=== PATIENT | female | born 1940 | race Caucasian/White ===

== ENCOUNTER → 2017-09-06 13:22 | Outpatient (CLI) | payer MEDICARE, OTHER ==
[~2017-09-06 13:22] MED LIST: ASCORBIC ACID500 MG PO; ATIVAN1 MG PO; ATROVENT HFA12.9 GM INH; BAYER CHEWABLE81 MG PO; BIOTIN5 MG PO; CALCIUM 600 +1 EAC3 PO; CO Q-10100 MG; COREG25 MG PO; COZAAR100 MG PO; CYCLOBENZAPRINE5 MG PO; GALZIN50 MG PO; HYDROCODONE-APA1 TAB PO; ILOTYCIN1 GM EACH EYE; KLOR-CON M2020 MEQ; LACTASE3000 UNIT PO; LIPITOR10 MG PO; LOMOTIL TABLET1 TAB PO; MAGNESIUM OXID500 MG PO; NEURONTIN 300300 MG; NIASPAN500 MG PO; NORVASC5 MG PO; OMEPRAZOLE20 M1 PO; PHENERGAN25 M1; PLAVIX75 MG PO; REQUIP0.25 MG PO; SENNA LAXATIVE8.6 MG; SPIRIVA18 MCG INH; VITAMIN B COMPL1 TAB PO; ZANTAC300 MG PO; ZOVIRAX400 MG PO
[2017-10-02 09:00] VITALS: BMI 24.5
== END | disposition home or self-care (01) ==
LOC: D.CT 13:22
DX: R93.1 Abnormal findings on diagnostic imaging of heart and coronary circulation (principal)

== ENCOUNTER 2017-09-28 07:30 | Inpatient (IN) | payer MEDICARE, OTHER ==
[2017-09-27 12:46] LABS: HEMATOCRIT 35.5 % (36.0-48.0); HEMOGLOBIN 11.4 g/dL (12-16); MCH 31.4 pg (26.0-34.0); MCHC 32.1 g/dL (31.0-37.0); MCV 97.8 fL (80.0-100.0); MEAN PLATELET VOLUME 10.2 fL (7.4-10.4); RBC 3.63 10x6/uL (4.00-5.40); RDW 13.9 % (11.5-14.5); WBC 8.1 10x3/uL (4.8-10.8)
[2017-09-27 12:58] LABS: PROTIME 12.8 SECONDS (11.6-15.0)
[2017-09-27 12:59] LABS: APTT 29.6 SECONDS (22.8-39.4)
[2017-09-27 13:00] LABS: APPEARANCE HAZY (CLEAR); COLOR STRAW (YELLOW); NITRITE POSITIVE (NEGATIVE)
[2017-09-27 13:01] LABS: BILIRUBIN NEGATIVE (NEGATIVE); GLUCOSE NEGATIVE (NEGATIVE); KETONE NEGATIVE (NEGATIVE); PROTEIN NEGATIVE (NEGATIVE); UROBILINOGEN NORMAL (NORMAL)
[2017-09-27 13:02] LABS: BACTERIA MANY /hpf (NONE SEEN); EPITHELIAL CELLS 0-5 /hpf (0-5); RED CELLS - URINE RARE /hpf (0-5)
[2017-09-27 13:14] LABS: ALBUMIN 3.7 g/dL (3.4-5.0); ANION GAP 12.8 mmol/L (8-16); BILIRUBIN - TOTAL 0.3 mg/dL (0.2-1.3); CALCIUM 9.3 mg/dL (8.5-10.1); CARBON DIOXIDE 27.4 mmol/L (21.0-32.0); CREATININE - SERUM 0.8 mg/dL (0.6-1.3); POTASSIUM - SERUM 4.2 mmol/L (3.5-5.1); PROTEIN - SERUM 6.9 g/dL (6.4-8.2)
[~2017-09-28] VITALS: Ht 157.5 cm; Wt 57.1 kg
--- NOTE | ~2017-09-28 | HP ---
PATIENT: ELEANOR DELGADO MEDICAL RECORD: [id number] ACCOUNT: [id number] LOCATION:[facility].CV02 : 38 ADMISSION DATE: 10/01/17 HISTORY AND PHYSICAL EXAMINATION ELEANOR Estrella (77yo, F) ID# [id number]. Date/Time09/19/2017 01:06ORLQZ1938Service Dept.NPP_[facility] ClinicProviderEDRENITA MIRELES MDInsuranceMed Primary: [place]) Insurance # : [id number] Referring Provider Name : RAMA YODER Employer Name : UNKNOWN Med Secondary: [facility] (MEDICARE SUPPLEMENT) Insurance # : [id number] Policy/Group # : [id number] Referring Provider Name : RAMA YODER Employer Name : UNKNOWN Prescription: DSTPSDIR - Member is eligible. Chief Complaint Carotid stenosis R CAROTID STENOSIS Patient's Care Team Referring Provider (): RAMA YODER: [address] [place] [id number], , Director Of Quality: AZIZA MICHELLE MD Patient's Pharmacies [facility] (ERX): [address] [facility] [id number], , Vitals BP:108/69 sitting L arm 09/19/2017 01:02 pmHR:86/REG 09/19/2017 01:03 pmHt:5 ft 2 in 09/19/2017 01:03 pmWt:125 lbs 09/19/2017 01:03 pmBMI:22.9 09/19/2017 01:03 pmAllergies Reviewed Allergies PERCOCETMedications Reviewed Medications acyclovir 400 mg /22/18 filledArg[facility] SystemsamLODIPine 5MG QHS09/19/17 enteredErika WatkinsamLODIPine 5 mg oltqlw15/19/18 filledArgInvision Heart Health Systemsascorbic acid (bulk)09/19/17 enteredErika WatkinsAspir-81 81 mg DAILY09/19/17 enteredErika WatkinsAtivan 1 mg tablet Take 1 tablet(s) as needed by oral route at bedtime.09/19/17 enteredGin Felizkinsatorvastatin 20 mg fzejdu41/29/18 filledPage HospitalWeavedAtrovent HFA 17 mcg/actuation aerosol inhaler Inhale 2 puff(s) every day by inhalation route.09/19/17 enteredGin Hallcarvedilol 25 mg tablet BID07/23/17 filledPage HospitalWeavedcyclobenzaprine 10 mg tablet DAILY09/14/17 [facility] HospitalWeaveddiclofenac sodium 75 mg tablet,delayed tlikuuy53/13/17 filledPage HospitalWeavedfluticasone 50 mcg/actuation nasal spray,cechycfiih63/28/18 [facility] toledoViViFigabapentin 300 mg capsule TID07/19/17 [facility] HospitalWeavedhydroCHLOROthiazide 12.5 mg bkdqolr64/18/17 [facility] HospitalWeavedhydroCHLOROthiazide 25 mg rojsdv21/25/17 [facility] HospitalWeavedHYDROcodone 10 mg-acetaminophen 325 mg /13/18 [facility] HospitalWeavedKlor-Con M20 mEq tablet,extended release DAILY08/01/17 [facility] HospitalWeavedLomotil 2.5 mg-0.025 mg tablet Take 1 tablet(s) every day by oral route.09/19/17 enteredGin Halllosartan 100 mg gbzujw53/01/17 [facility] HospitalWeavednitrofurantoin monohydrate/macrocrystals 100 mg wsufrav73/01/17 [facility] [place] HISTORY AND PHYSICAL [id number] ELEANOR DELGADOnitroglycerin 0.4 mg sublingual /09/18 [facility] HospitalWeavednystatin 100,000 unit/mL oral zgoulpyckj79/13/18 [facility] HospitalWeavedomeprazole 20 mg capsule,delayed ejnigda63/10/18 [facility] HospitalWeavedomeprazole 20 mg tablet,delayed release Take 20 mg every day by oral route.09/19/17 enteredGin HallPlavix 75 mg tablet Take 1 tablet(s) every day by oral route.09/19/17 enteredGin HallrOPINIRole 0.5 mg tablet EVERY NIGHT08/17/17 filledPage HospitalWeavedSpiriva with HandiHaler 18 mcg and inhalation capsules Inhale 1 capsule(s) every day by inhalation route.09/19/17 Raudel Stauffer Reviewed Problems Carotid artery stenosis - Onset: 09/11/2017, Bilateral Family History Reviewed Family History Mother- Coronary arteriosclerosisSocial History Reviewed Social History Cardiology Family history of heart disease?: Y Smoking Status: Former smoker High blood pressure: Y Surgical History Reviewed Surgical History pPM 2010, stent 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 HPI severe right internal carotid artery stenosis ROS Patient reports exercise intolerance (half block claudication) but reports no fever, no night sweats, no significant weight gain, and no significant weight loss. She reports vision change (left eye laterally) but reports no dry eyes and no irritation. She reports palpitations but reports no chest pain, no arm pain on exertion, no shortness of breath when walking, no shortness of breath when lying down, and no known heart murmur; pacemaker. She reports dizziness and restless legs but reports no loss of consciousness, no weakness, no numbness, no seizures, and no headaches. She reports no difficulty hearing and no ear pain. She reports no frequent nosebl eeds and no nose/sinus problems. She reports no sore throat, no bleeding gums, no snoring, no dry mouth, no mouth ulcers, no oral abnormalities, and no teeth problems. She reports no jugular vein distension and no swollen glands. She reports no cough, no w heezing, no shortness of breath, and no coughing up blood. She reports no abdominal pain, no vomiting, normal appetite, no diarrhea, not vomiting blood, no nausea, and no constipation. She reports no incontinence, no HISTORY AND PHYSICAL [id number] ELEANOR DELGADO difficulty urinating, no hematuria, an d no increased frequency. She reports no muscle aches, no muscle weakness, no arthralgias/joint pain, no back pain, and no swelling in the extremities. She reports no abnormal mole, no jaundice, and no rashes. She reports no depression, no sleep disturbanc es, feeling safe in relationship, and no alcohol abuse. She reports no fatigue. She reports no swollen glands and no bruising. She reports no runny nose, no sinus pressure, no itching, no hives, and no frequent sneezing. ROS as noted in the HPI Physical Exam Patient is a 77-year-old female. Constitutional: General Appearance well nourished and developed and healthy-appearing. Level of Distress NAD. Ambulation ambulating normally. Cardiovascular: Apical Impulse not displaced or no thrill. Heart Auscultation normal s1 and s2; no murmurs, rubs, or gallops; and RRR; PACs. Neck Vessels right carotid bruit. Arterial Pulses no abdominal aorta bruits, femoral bruits, or popliteal bruits; popliteal not palpable (right) and dorsalis pedis not palpable (right); and 2+ bilateral, carotid 2+ bilateral, and femoral 2+ bilateral; palpable left dorsalis pedis pulse 2+. Edema no edema or varicosities. Lungs: Repiratory Effort no dyspnea. Percussion no hyperresonance or dullness or flatness. Auscultation no wheezing, r honchi, or rales / crackles and breathing sounds normal, good air movement, and CTA except as noted. Abdomen: Bowl Sounds normal. Inspection and Palpation no tenderness, guarding, masses, or rebound tenderness and soft and non-distended. Liver non-tender and no hepatomegaly. Spleen non-tender and no splenomegaly. Hernia none palpable. Musculoskeletal System: Gait And Stance normal gait and stance. Digits and Nails normal nails and no cyanosis. Neurologic: Cranial Nerves grossly intact. Reflexes DTRs 2+ bilaterally throughout. Sensation grossly intact. Lymph Nodes: Lymph Nodes no cervical LAD, supraclavicular LAD, axillary LAD, or inguinal LAD. Eyes: Lids and Conjunctivae no discharge or pallor and non-injected; lateral gaze impaired OS. Pupils PERRLA. Cornea grossly intact. EOM EOMI. Lens clear. Sclera non-icteric. Neck: Neck no masses or enlarged lymph nodes and supple, trachea midline, and carotid bruits (right). Thyroid no enlargement or nodules and non-tender. Skin: Inspection and Palpation no rash, lesions, ulcers, jaundice, or abnormal nevi. Assessment / Plan severe right internal carotid artery stenosis Intracranial stenting of basal artery Left carotid stent patent 1. Carotid artery stenosis I65.29: Occlusion and stenosis of unspecified carotid artery Discussion Notes HISTORY AND PHYSICAL [id number] ELEANOR DELGADO I have discussed the patient's disease process with her and her daughter in detail as well as the alternative methods of treatment. We discussed right carotid endarterectomy and the expected benefit s and risk which include bleeding, infection, stroke, , and the imponderables. They understand all of the above and wishes to proceed with planned surgery SHIKHA MIRELES MD at 1318 CC: [id number] DICTATION DATE: 09/19/17 1300 ELECTRIC MOTOR ASSEMBLER: KYLE 09/27/17 0849 DIS IN 10/03/17 [facility] [address] [place] [address]
--- NOTE | ~2017-09-28 | OP ---
PATIENT NAME: ELEANOR DELGADO MEDICAL RECORD: [id number] :38 [facility] ADMISSION DATE:10/01/17 SURGEON: LUKE MIRELES MD DATE OF OPERATION: 10/01/2017 SURGEON: Luke Mireles MD ANESTHESIA: General endotracheal, Dr. Iglesias. OPERATION PERFORMED: Right carotid endarterectomy. PREOPERATIVE DIAGNOSIS: Severe right internal carotid artery stenosis. POSTOPERATIVE DIAGNOSIS: Severe right internal carotid artery stenosis. INDICATION FOR OPERATION: Severe right internal carotid artery stenosis. FINDINGS AT OPERATION: Severe greater than 90% right internal carotid artery stenosis. There were no EEG changes with clamping or unclamping of the carotid artery. ESTIMATED BLOOD LOSS: Less than 100 cc. DESCRIPTION OF PROCEDURE: After informed consent, adequate preoperative medication evaluation, the patient was brought to the operating room, placed on the table in the supine position. After induction of general endotracheal anesthesia and application of appropriate monitoring devices, the right neck was prepped and draped in sterile field, utilizing Betadine scrub, alcohol, and Betadine solution. Betadine-impregnated drape was also used. An oblique incision was made in the skin crease. Dissection carried down the fascia. Hemostasis maintained with electrocautery. Facial vein was identified and divided. Utilizing sharp dissection, the common carotid, internal and external carotid arteries were dissected free of surrounding structures, protecting the neurological structures. The patient was given a calculated dose of heparin, after 3 minutes, clamps were applied. After 2 minutes, no EEG change. The arteriotomy was made and extended with Barbour scissors. Artery underwent endarterectomy sharply. Artery underwent extensive debridement and irrigation. Utilizing a CorMatrix vascular patch, a running 7-0 Prolene suture, the arteriotomy was closed with a patch angioplasty technique. All maneuvers to remove trapped air were performed. The clamps removed sequentially. There were no EEG changes. The patient was given a calculated dose of protamine to reverse the heparin. Hemostasis was achieved. A #7 Bridger-Gay drain was left in the depths of wound and brought out through the base of the neck. Neck was again irrigated. Instrument count and sponge count were correct times 2. Neck was closed in layers utilizing 3-0 Vicryl on platysma, 5-0 subcuticular Monocryl on the skin. Sterile dressings were applied. The patient tolerated the procedure well and transferred to cardiovascular recovery in stable condition. TRANSINT:[id number] Voice Confirmation ID: [id number] DOCUMENT ID: [id number] OPERATIVE REPORT [id number] ELEANOR DELGADO EDWARD MD at 1318 CC: [id number] DICTATION DATE: 10/01/17 1014 TRANSVERSE ABDOMINAL MUSCLE NURSE: 10/01/17 1117 DIS IN 10/03/17 [place] [id number] [place] [id number]
[2017-10-01] VITALS (54 sets, daily range): BP systolic 97–143; BP diastolic 30–60; BMI 22.9
[2017-10-02] VITALS (50 sets, daily range): BP systolic 90–158; BP diastolic 31–74; Ht 157.5 cm; Wt 57.1 kg
[2017-10-03] VITALS (12 sets, daily range): BP systolic 96–141; BP diastolic 38–64
== END 2017-10-03 13:05 | disposition home or self-care (01) | DRG 39 ==
LOC: D.SDCHOLD 07:30 → D.CVICU 10-01 05:00 → D.SDCHOLD 10-01 07:30 → D.CVICU 10-01 09:20
PROVIDERS: Internal Medicine Cardiovascular Disease
PROC: 03UK0JZ Supplement Right Internal Carotid Artery with Synthetic Substitute, Open Approach (ICD-10-PCS; 2017-10-01)
PROC: 03CK0ZZ Extirpation of Matter from Right Internal Carotid Artery, Open Approach (ICD-10-PCS; principal; 2017-10-01 07:30)
DX: I65.23 Occlusion and stenosis of bilateral carotid arteries (principal); I10 Essential (primary) hypertension; E78.5 Hyperlipidemia, unspecified; G62.9 Polyneuropathy, unspecified; Z95.0 Presence of cardiac pacemaker

== ENCOUNTER 2018-08-13 10:46 | Outpatient (CLI) | payer MEDICARE, OTHER ==
[~2018-08-13] VITALS: Ht 157.5 cm; Wt 59.1 kg
--- NOTE | ~2018-08-13 | HEMODYNAMI ---
PATIENT:ELEANOR DELGADO [place] MEDICAL RECORD: [id number] : 36 LOCATION:[facility] ADMISSION DATE: 08/13/18 Generatedon:08/13/201813:31 Patient name: ELEANOR DELGADO Patient #: [id number] SSN: : 1940 Date of study: 08/13/2018 Page: Of Hemodynamic Procedure Report Patient Data Patient Demographics Procedure consent was obtained First Name: ELEANOR Gender: Female Last Name: DANNY : 1940 [facility] Initial: [place] Age: 78 year(s) Patient #: [id number] Race: Unknown Additional ID: [id number] Contact details Address: [place] [address] State: [place] City: [place] Zip code: [address] Past Medical History Allergies Allergen Reaction Date Comments Reported Percocet 08/13/2018 Admission Admission Data Admission Date: 08/13/2018 Admission Time: 10:46 Procedure Procedure Types Cath Procedure Diagnostic Procedure LHC LHC w/Coronaries Sedation Charges Moderate Sedation up to 15 minutes PCI Procedure Coronary Stent Coronary Stent Initial Peripheral Cath Diagnostic Procedure Battery Tester And Repairer Peripheral Procedures Epocz-Fmctobm-Mnx-Off Procedure Description Procedure Date Procedure Date: 08/13/2018 Procedure Start Time: 13:00 Procedure End Time: 13:30 Procedure Staff Name Function Matheus Harris MD Performing Physician Ruben Crouch RT Manager Configuration Fransisca Johns RT Monitor Je Canas RN Nurse Melodie Griggs RT Scrub Procedure Data Cath Procedure Fluoroscopy Diagnostic fluoroscopy Total fluoroscopy Time: 4.4 time: 4.4 min min Diagnostic fluoroscopy Total fluoroscopy dose: 688 dose: 688 mGy mGy Contrast Material Contrast Material Type Amount (ml) Isovue 300 183 Entry Location Entry Primary Successful Side Size Upsize Upsize Entry Closure Succes sful Closure Location (Fr) 1 (Fr) 2 (Fr) Remarks Device Remarks Femoral Right 5 Fr 6 Fr Exoseal artery Short Estimated blood loss: 10 ml Diagnostic catheters Device Type Used For End Catheter Placement MULTIPACK JL 4.0 5Fr Left Coronary catheter Angiography MULTIPACK 3DRC 5Fr Right Coronary catheter Angiography MULTIPACK Pigtail 5 Fr LV Angiography catheter MULTIPACK Pigtail 5 Fr Abdominal catheter aortogram with runoff Procedure Complications No complications Procedure Medications Medication Administration Route Dosage Oxygen etCO2 Nasal cannula 2 l/min Lidocaine 2% added to field 20 Heparin Flush Bag added to field 2 bags (1000units/500ml NS) Versed I.V. 1 mg Fentanyl I.V. 50 mcg Heparin Bolus I.V. 4000 units Integrilin (Bolus I.V. 5 ml 2mg/ml) Plavix P.O. 600 mg Hemodynamics Rest Heart Rate: 75 (bpm) Pressure Samples Time Site Value (mmHg) Purpose Heart Use Rate(bpm) 13:09 LV 140/19,24 EDP 82 13:10 AO 148/60(97) Pullback 77 13:10 LV 136/21,21 Pullback 77 Gradients Valve Time Site 1 Site 2 Mean SEP/DFP Peak To Heart Use (mmHg) (sec/min) Peak Rate (mmHg) (bpm) Aortic 13:10 LV AO 0 77 136/21,21 148/60(97) Calculations Valve P-P Mean Valve Index Valve Source Name Gradient Area Flow (cm2) Aortic 0 0 Snapshots Pre Cath Intra NCS Post Cath Vital Signs Time Heart Resp SPO2 etCO2 NIBP (mmHg) Rhythm Pain Sedation Rate (ipm) (%) (mmHg) Status Level (bpm) 12:54:06 73 12 95 29.4 177/88(107) NSR 0 (11) 10(A) , No pain 12:58:40 74 14 96 1.5 174/68(99) NSR 0 (11) 10(A) , No pain 13:03:02 75 10 94 19.6 152/63(106) NSR 0 (11) 9(A) , No pain 13:07:30 75 12 100 0 140/56(77) NSR 0 (11) 9(A) , No pain 13:11:47 74 15 99 30.9 123/49(81) NSR 0 (11) 9(A) , No pain 13:16:05 75 17 98 40.5 110/44(82) NSR 0 (11) 9(A) , No pain 13:20:19 75 14 100 39.6 116/46(85) NSR 0 (11) 9(A) , No pain 13:24:29 44 21 100 36.2 100/54(77) NSR 0 (11) 9(A) , No pain 13:29:28 76 17 97 30.1 144/58(105) NSR 0 (11) 10(A) , No pain Medications Time Medication Route Dose Verified Delivered Reason Notes Effectiveness by by 12:58:39 Oxygen etCO2 2 Matheus Wooten used for Nasal l/min St Timmy Canas RN procedure cannula 12:58:45 Lidocaine 2% added 20ml Matheus Jarvis for local to vial [facility] anesthetic field MD DEE 12:58:53 Heparin Flush added 2 Matheus Matheus used for Bag to bags [facility] procedure (1000units/500ml field MD DEE NS) 12:59:12 Versed I.V. 1 mg Matheus Wooten for sedation St Timmy Canas RN, MD 12:59:19 Fentanyl I.V. 50 Matheus Ruizie for sedation mcg St Timmy Canas RN, MD 13:17:57 Heparin Bolus I.V. 4000 Matheus Wooten for verif ied units St Timmy Canas RN anticoagulation with dr MD jeronimo 13:19:45 Integrilin I.V. 5 ml Matheus Wooten for waste d 5 (Bolus 2mg/ml) St Timmy Canas RN antiplatelet ml of MD therapy vial. 13:30:32 Plavix P.O. 600 Matheus Wooten for mg St Timmy Canas RN antiplatelet MD therapy Procedure Log Time Note 12:38:21 Time tracking: Regular hours (M-F 7:00 - 5:00) 12:38:25 Plan of Care:Hemodynamics will remain stable., Cardiac rhythm will remain stable., Comfort level will be maintained., Respiratory function will remain adequate., Patient/ family verbilizes understanding of procedure., Procedure tolerated without complication., Recovers from procedure without complications.. 12:40:02 Ruben Crouch RT(R) sent for patient. Start room use. 12:45:50 Patient received from Pre/Post Procedure Room to CCL 1 Alert and oriented. Tansferred to table in Supine position. 12:45:51 Warm blankets applied, and tara hugger turned on for patient comfort. 12:45:51 Correct patient and procedure confirmed by team. 12:45:53 Signed procedure consent form obtained from patient. 12:45:54 ECG and BP/O2 sat monitors applied to patient. 12:45:55 Full Disclosure recording started 12:52:52 Baseline sample Acquired. 12:52:52 Vital chart was started 12:52:57 Rhythm: sinus rhythm 12:53:15 H&P Date Dictated: 08/06/2018 Within 30 days and on chart.. 12:53:17 Pre-procedure instructions explained to patient. 12:53:18 Pre-op teaching completed and patient verbalized understanding. 12:53:21 Family in waiting room. 12:53:23 Patient NPO since Midnight. 12:53:32 Patient allergic to Percocet 12:53:41 Is the patient allergic to Iodine/contrast media? No. 12:53:46 Is patient on blood thinner?No 12:53:58 Patient diabetic? No. 12:53:59 ----Pre-sedation anethsthesia assessment.---- 12:54:02 Previous problem with sedation/anesthesia? No ? 12:54:04 Snore? Yes 12:54:06 Sleep apnea? No 12:54:07 Deviated septum? No 12:54:08 Opens mouth fully? Yes 12:54:10 Sticks out tongue? Yes 12:54:16 Airway obstruction? Yes asthma 12:54:22 Dentures? Yes in tight 12:54:31 Pre procedure: right dorsailis pedis pulse 1+ Palpable, but thready & weak; easily obliterated 12:54:35 Pre procedure: left dorsailis pedis pulse 1+ Palpable, but thready & weak; easily obliterated 12:54:38 Patient pain scale 0/10 ?. 12:54:46 IV patent on arrival in left antecubital with 0.9% NaCl at 10ml/hr. 12:54:59 Bilateral groins area was prepped with chlora-prep and draped in sterile fashion 12:55:02 Alarms reviewed by R. N. 12:55:03 Sharps counted by scrub and verified by R.N. 12:55:03 Physician arrived 12:56:54 --------ALL STOP TIME OUT------ 12:56:54 Final Timeout: patient, procedure, and site verified with staff and physician. All members of the team are in agreement. 12:56:56 Bilateral groins site verified by team. 12:57:02 Maximum allowable Isovue 300 dose 300ml. Physician notified. (300ml for normal creatinines. For patients with creatinine of 1.7 or higher multiply weight(kg) x 5 divided by creatinine.) 12:57:05 Fire Safety Assessment: A--An alcohol-based skin anteseptic being used preoperatively., C--Open oxygen or nitrous oxide is being used., D--An ESU, laser, or fiber-optic light is being used. 12:57:08 Physical assessment completed. ASA score P 2 - A patient with mild systemic disease as per Matheus Harris MD. 12:57:11 Sedation plan: IV Moderate Sedation Medication:Versed, Fentanyl 12:58:39 Oxygen 2 l/min etCO2 Nasal cannula was administered by Je Canas RN; used for procedure; 12:58:45 Lidocaine 2% 20ml vial added to field was administered by Matheus Harris MD; for local anesthetic; 12:58:53 Heparin Flush Bag (1000units/500ml NS) 2 bags added to field was administered by Matheus Harris MD; used for procedure; 12:59:09 Zero performed for pressure channel P1 12:59:12 Versed 1 mg I.V. was administered by Je Canas RN; for sedation; 12:59:19 Fentanyl 50 mcg I.V. was administered by Je Canas RN; for sedation; 13:00:31 Procedure started. 13:00:38 Local anesthetic to right femoral artery with Lidocaine 2% by Matheus Harris MD.INITIAL ACCESS ONLY 13:00:46 A 5 Fr sheath was inserted into the Right Femoral artery 13:03:11 GLIDE WIRE ANGLE 260cm ([id number]) opened to sterile field. 13:03:14 Use device set Femoral Dx 13:03:15 ACIST Syringe (84253) opened to sterile field. 13:03:17 Bag Decanter (2002) opened to sterile field. 13:03:18 Medline Cath Pack ([id number]) opened to sterile field. 13:03:18 DIAGNOSTIC WIRE .035 260cm J wire (716576) opened to sterile field. 13:03:20 ACIST Hand Control (35933) opened to sterile field. 13:03:20 ACIST Manifold (00713) opened to sterile field. 13:03:21 DIAGNOSTIC Multipack 5Fr catheter set (SY4550) opened to sterile field. 13:03:21 Tegaderm 4 x 4 (1626W) opened to sterile field. 13:03:22 SHEATH 5FR Kulm (BDI645) opened to sterile field. 13:04:53 A MULTIPACK JL 4.0 5Fr catheter was advanced over the wire and used for Left Coronary Angiography. 13:05:52 Catheter removed. 13:06:00 A MULTIPACK 3DRC 5Fr catheter was advanced over the wire and used for Right Coronary Angiography. 13:07:59 Catheter removed. 13:09:08 A MULTIPACK Pigtail 5 Fr catheter was advanced over the wire and used for LV Angiography. 13:09:53 LV gram done using SMITH 13:09:56 Injector settings: Ml/sec: 10, Volume: 20, 13:10:00 EF : 55 % 13:10:05 LV hemodynamics recorded. 13:10:44 A MULTIPACK Pigtail 5 Fr catheter was advanced over the wire and used for Abdominal aortogram with runoff. 13:14:01 Catheter removed. 13:14:41 Use device set WAMSUTTER PCI 13:14:44 SHEATH 6FR Kulm (FCE213) opened to sterile field. 13:14:50 INFLATOR Merit BasixCompak (TM7880) opened to sterile field. 13:14:56 WHISPER 300cm guide wire ([id number]) opened to sterile field. 13:16:04 Sheath upsized to a 6 Fr Short. 13:16:17 GUIDE 6FR JR 4.0 SH catheter ([id number]) opened to sterile field. 13:17:12 6 Fr JR 4.0 SH guide catheter was inserted over the wire 13:17:57 Heparin Bolus 4000 units I.V. was administered by Je Canas RN; for anticoagulation; verified with dr jeronimo 13:19:45 Integrilin (Bolus 2mg/ml) 5 ml I.V. was administered by Je Canas RN; for antiplatelet therapy; wasted 5 ml of vial. 13:20:46 WHISPER wire advanced. 13:23:23 Place stent Inflation Number: 1 A INTEGRITY RX 3.0 x 18 stent ([id number]) was prepped and advanced across the Mid RCA. The stent was deployed at 14 ISABEL for 0:20 (min:sec). 13:24:01 Stent catheter was removed intact over wire. 13:24:02 Wire removed. 13:24:02 Guide catheter removed. 13:24:17 Sheath removed intact; hemostasis achieved with Exoseal to the Right Femoral artery. 13:24:18 Procedure ended.(Physican Out) 13:24:29 Fluoroscopy time 04.40 minutes. 13:24:33 Fluoroscopy dose: 688 mGy 13::33 Flurop Dose total: 688 13:24:38 Contrast amount:Isovue 300 183ml. 13:24:40 Sharps counted by scrub and verified by R.N. 13:24:51 Insertion/operative site no bleeding no hematoma. 13:24:54 Post-op/insertion site Right Femoral artery dressed using a 4 x 4 and Tegaderm. 13:24:57 Post right femoral artery:stable, clean and dry 13::58 Post Procedure Pulses reassessed and unchanged 13:25:00 Post-procedure physical assessment completed. ASA score P 2 - A patient with mild systemic disease as per Matheus Harris MD. 13:25:02 Post procedure rhythm: unchanged. 13:25:06 Estimated blood loss: 10 ml 13:25:07 Post procedure instruction explained to patient.Patient verbalizes understanding. 13:25:08 Patient needs reinforcement of post procedure teaching. 13:25:29 Procedure type changed to Cath procedure, Diagnostic procedure, LHC, LHC w/Coronaries, Sedation Charges, Moderate Sedation up to 15 minutes, PCI procedure, Coronary Stent, Coronary Stent Initial, Peripheral Cath Diagnostic Procedure, Battery Tester And Repairer Peripheral Procedures, Ynvkj-Yifvqpo-Wps-Off 13:25:35 Procedure Complication : No complications 13:25:37 See physician's report for complete and final results. 13:26:01 EXOSEAL 6Fr (EX600) opened to sterile field. 13:29:43 Procedure and supply charges have been captured, reviewed, submitted and are correct. 13:30:32 Plavix 600 mg P.O. was administered by Je Canas RN; for antiplatelet therapy; 13:30:41 Vital chart was stopped 13::43 Report given to Pre/Post Procedure Room. 13:30:45 Patient transfered to Pre/Post Procedure Room with Stretcher. ::54 Procedure ended. ::54 Full Disclosure recording stopped 13:30:58 End room use (Document Last) Intervention Summary Intervention Notes Time ActionType Lesion and Equipment Action# Pressure Duration Attributes Used 13:23:23 Place stent Mid RCA INTEGRITY RX 1 14 00:20 3.0 x 18 stent ([id number]) Device Usage Item Name Manufacture Quantity Catalog Hospital Part Current Minimal Lot# / Number Charge Number Stock Stock Serial# Code GLIDE WIRE Terumo 1 [id number] 208136 474605 5 ANGLE 260cm ([id number]) ACIST Acist 1 01967 304752 910447 748334 20 Syringe Medical (02296) Systems Inc Bag Decanter Microtek 1 2001S 308385 06179 586992 5 (2001S) Medical Inc. Medline Cath Medline 1 [id number] 595492 30972 021030 5 Pack ([id number]) DIAGNOSTIC St Shahbaz 1 101214 924671 532831 739303 30 WIRE .035 260cm J wire (060221) ACIST Hand Acist 1 25822 222728 219202 871106 5 Control Medical (24595) Systems Inc ACIST Acist 1 80999 392721 326814 991951 5 Manifold Medical (95498) Systems Inc DIAGNOSTIC Cardinal 1 JG9415 017389 22332 813378 30 Multipack Health 5Fr catheter set (VO7670) Tegaderm 4 x 3M 1 1626W 345564 379037 008308 5 4 (1626W) SHEATH 5FR Terumo 1 PNY683 129327 120892 787780 5 Kulm (NKU730) MULTIPACK JL Cardinal 1 658203 5 4.0 5Fr Health catheter MULTIPACK Cardinal 1 146147 5 3DRC 5Fr Health catheter MULTIPACK Cardinal 1 318705 5 Pigtail 5 Fr Health catheter SHEATH 6FR Terumo 1 IVX573 882497 781197 741976 40 Kulm (TVV685) INFLATOR Merit 1 QV8939 843090 557146 379079 15 [facility] Medical BasixCompak (BT9234) WHISPER Cleaning 1 [id number] 569848 766644 403789 5 300cm guide Vascular wire ([id number]) GUIDE 6FR JR Medtronic 1 [id number] 630996 97435 136337 1 4.0 SH catheter ([id number]) INTEGRITY RX Medtronic 1 [id number] 256614 608792 408998 5 [id number] 3.0 x 18 stent ([id number]) EXOSEAL 6Fr Cardinal 1 EX600 168046 391125 486725 10 (EX600) Health Signature Audit [place] Stage Time Signature Unsigned Intra-Procedure 08/13/2018 Fransisca 1:31:26 PM Counts RT(R) Signatures Monitor : Fransisca Signature : Counts RT Date : Time : [place] [id number] [facility] [place] [address]
[~2018-08-13 10:46] MED LIST changes: -NEURONTIN 300300 MG; +NEURONTIN 300300 MG PO; -SENNA LAXATIVE8.6 MG; +SENNA LAXATIVE8.6 MG PO
[2018-08-13] MEDS ORDERED: ATROVENT HFA12.9 GM INH (11:07)
[2018-08-13] MEDS ORDERED: KLOR-CON M2020 MEQ PO (11:10)
[2018-08-13 11:23] VITALS: BP 187/60; Ht 157.5 cm; Wt 59.1 kg
--- NOTE | 2018-08-13 11:30 | NUR ---
BILATERAL PEDAL PULSES LOCATED WITH DOPPLER AND MARKED.
[2018-08-13 11:37] LABS: BASOPHILS 0.3 % (0-2); EOSINOPHILS 6.1 % (0-7); HEMATOCRIT 39.8 % (36.0-48.0); HEMOGLOBIN 13.2 g/dL (12-16); IMMATURE GRANULOCYTES 0.3 % (0-5); LYMPHOCYTES 35.3 % (15-50); MCH 32.5 pg (26.0-34.0); MCHC 33.2 g/dL (31.0-37.0); MEAN PLATELET VOLUME 10.6 fL (7.4-10.4); MONOCYTES 12.8 % (2-11); NEUTROPHILS 45.2 % (40-80); PLATELET COUNT 264 10x3/uL (130-400); RBC 4.06 10x6/uL (4.00-5.40); RDW 13.9 % (11.5-14.5)
[2018-08-13 11:38] LABS: ANION GAP 14.1 mmol/L (8-16); CARBON DIOXIDE 27.1 mmol/L (21.0-32.0); CREATININE - SERUM 0.9 mg/dL (0.6-1.3); POTASSIUM - SERUM 4.2 mmol/L (3.5-5.1)
[2018-08-13] MEDS ORDERED: PLAVIX75 MG PO (13:48)
--- NOTE | 2018-08-13 14:00 | NUR ---
PATIENT AWAKE, VSS ON 2L NC. RIGHT GROIN DRESSING IS CDI, NO S/S OF BLEEDING OR HEMATOMA. NO C/O PAIN, NUMBNESS, OR TINGLING. NO N/V. PRESCRIPTION FOR PLAVIX CALLED IN TO [facility] IN [place] PER REQUEST OF PATIENT.
--- NOTE | 2018-08-13 14:30 | NUR ---
PATIENT AWAKE, VSS ON 2L NC. RIGHT GROIN DRESSING IS CDI, NO S/S OF BLEEDING OR HEMATOMA. NO C/O PAIN, NUMBNESS, OR TINGLING.
--- NOTE | 2018-08-13 14:58 | NUR ---
PATIENT INTERMITTENTLY RESTING, VSS ON 2L NC. RIGHT GROIN DRESSING IS CDI, NO S/S OF BLEEDING OR HEMATOMA. NO C/O PAIN, NUMBNESS, OR TINGLING. NO N/V. FAMILY AT BEDSIDE.
--- NOTE | 2018-08-13 15:30 | NUR ---
PATIENT RESTING, VSS ON 2L NC. RIGHT GROIN DRESSING IS CDI, NO S/S OF BLEEDING OR HEMATOMA.
--- NOTE | 2018-08-13 16:00 | NUR ---
PATIENT INTERMITTENTLY RESTING, VSS ON ROOM AIR. RIGHT GROIN DRESSING IS CDI, NO S/S OF BLEEDING OR HEMATOMA. NO C/O PAIN, NUMBNESS, OR TINGLING. TOLERATING PO FLUIDS, NO N/V.
--- NOTE | 2018-08-13 16:30 | NUR ---
PT'S HEAD OF BED INC TO 30 DEGREES. TOLERATED WELL. SET UP WITH SANDWICH TRAY AND DRINK. DENIES NAUSEA. RIGHT GROIN DRESSING C/D/I. NO S/S OF HEMATOMA NOTED.
--- NOTE | 2018-08-13 17:08 | NUR ---
LEFT FA PIV D/C'D WITH CATH TIP INTACT. PT TOLERATED WELL. REMOVED FROM MONITOR CABLES. PT AMBULATED TO RESTROOM WITH ASSIST. VOIDED WITHOUT DIFFICULTY. RIGHT GROIN DRESSING C/D/I. PT'S FAMILY AT BEDSIDE TO ASSIST PT IN GETTING DRESSED.
--- NOTE | 2018-08-13 17:25 | NUR ---
DISCUSSED DISCHARGE INSTRUCTIONS WITH PT AND PT'S FAMILY. THEY VOICED UNDERSTANDING.
--- NOTE | 2018-08-13 17:30 | NUR ---
PT TAKEN OUT TO VEHICLE BY AMBULANCE. ALL DISCHARGE PAPERWORK IN HAND. ALL BELONGINGS IN HAND. NO S/S OF DISTRESS NOTED.
--- NOTE | 2018-08-16 12:17 | OP ---
PATIENT NAME: ELEANOR DELGADO MEDICAL RECORD: [id number] :36 LOCATION:D.CAT ADMISSION DATE: SURGEON: AZIZA MICHELLE MD DATE OF OPERATION: 08/13/2018 PROCEDURE: Left heart catheterization plus aortofemoral runoff plus stenting to the right, right femoral artery approach. CATHETERS: A 5-Omani sheath, 5/4 left and right Andra, 5/4 pig. The procedure was well tolerated and the patient returned to the hubbard, sheath removed. ExoSeal device placed. FINDINGS: Left ventriculography in 30-degree SMITH view: Normal wall motion, normal systolic function. CORONARY ANATOMY: LEFT MAIN: Left main is free of disease. LAD: Free of disease in the diagonal system. CIRCUMFLEX: Has a small OM about 50% stenosis. RIGHT CORONARY ARTERY: Has diffuse stenosis about 80% in its proximal one-third. The catheter was withdrawn proximally to the level of the renal arteries. Aortofemoral runoff was performed. This showed no evidence aneurysm. There was some disease particularly in the distal portion of the aorta right above the bifurcation. 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 There are collaterals to the pelvic brim feeding the right superficial femoral, which actually has good flow distally. Left superficial femoral has severe diffuse stenosis of about 80%. PLAN: Intervention of the right coronary. DESCRIPTION OF PROCEDURE: A 5-Omani sheath was exchanged for a 6-Omani sheath. A JR guiding catheter provided excellent guide catheter support followed by 300 cm Whisper wire, which was placed across the tightly occluded right coronary down this portion of vessel. Stent deployed was a 3.0 x 18 mm Integrity nondrug eluting stent up to 14 atmospheres. Final angiography shows excellent resolution of 80% to 90% right coronary to no significant residual. JOSE flow was 3 throughout the procedure. The right superficial femoral has excellent collaterals and would not intervene from this standpoint, could consider antegrade stick to the left superficial femoral to revascularize this vessel if indicated. TRANSINT:[id number] Voice Confirmation ID: [id number] DOCUMENT ID: [id number] OPERATIVE REPORT [id number] ELEANOR DELGADO GREGORY A MD at 1219 CC: [id number] DICTATION DATE: 08/13/18 1336 SUPPLIER MANAGER: 08/13/18 1408 DEP CLI 08/13/18 [facility] [address] [place] [address]
== END 2018-08-13 17:30 | disposition home or self-care (01) ==
LOC: D.CATH 10:46
PROVIDERS: ATTEND Internal Medicine Interventional Cardiology
DX: I25.119 Atherosclerotic heart disease of native coronary artery with unspecified angina pectoris (principal); Z01.812 Encounter for preprocedural laboratory examination

== ENCOUNTER → 2018-10-15 12:03 | Outpatient (CLI) | payer MEDICARE, OTHER ==
[2018-08-13 11:23] VITALS: BMI 23.8
[~2018-10-15 12:03] MED LIST changes: +KLOR-CON M2020 MEQ PO
== END | disposition home or self-care (01) ==
LOC: D.US 12:03
PROVIDERS: ATTEND Internal Medicine Cardiovascular Disease
DX: I65.23 Occlusion and stenosis of bilateral carotid arteries (principal)